=== PATIENT | male | born 1975 | race Caucasian/White ===

== ENCOUNTER 2018-03-04 15:09 | Emergency (ER) | payer MEDICAID ==
[~2018-03-04] VITALS: Ht 172.7 cm; Wt 70.0 kg
[~2018-03-04 15:09] MED LIST: CYCL5TAB PO; DICL-86 PO; METH500T3 PO
[2018-03-04 15:17] VITALS: BP 150/80; PULSE 87; RESP 16; TEMP 98.3; O2SAT 99
[2018-03-04] MEDS ORDERED: CLIN300C5 PO (15:48)
--- NOTE | 2018-03-04 15:52 | PD ---
HPI . Toothache Chief Complaint: Oral / Dental Pain or Problem Time Seen by Provider: 15:41 Travel History International Travel<30 days: No Contact w/Intl Traveler<30days: No Traveled to known affect area: No History of Present Illness HPI History is obtained from the patient, his and his son who appears to be about 6 years old. He comes in complaining with right jaw pain. He states that it started today. The states that he has been having problems for a long time. She states that he will not go to the dentist. The boy states that [place] when his father started complaining with pain causing them to leave the beach to come to the emergency department. He has associated swelling. He rates his pain at 10/10 with no modifying factors. PFSH Past Medical History Arthritis: No Asthma: Yes (2004 USE ALBUTEROL INHALER PRN) Autoimmune Disease: No Blood Disorders: No Heart Rhythm Problems: No Cancer: No Cardiovascular Problems: No High Cholesterol: No Chemotherapy: No Chest Pain: No Congestive Heart Failure: No COPD: No Cerebrovascular Accident: No Diabetes: No Endocrine: No GERD: No Glaucoma: No Genitourinary: No Headaches: No Hepatitis: No Hiatal Hernia: No Hypertension: No Immune Disorder: No Kidney Stones: No Musculoskeletal: No Neurologic: No Psychiatric: No Respiratory: No Myocardial Infarction: No Radiation Therapy: No Renal Failure: No Seizures: No Sickle Cell Disease: No Sleep Apnea: No Thyroid Disease: No Ulcer: No Past Surgical History Abdominal Surgery: No AICD: No Cardiac Surgery: No Ear Surgery: No Endocrine Surgery: No Eye Surgery: No Genitourinary Surgery: No Gynecologic Surgery: No Joint Replacement: No Oral Surgery: No Pacemaker: No Thoracic Surgery: No Social History Alcohol Use: Yes (ONCE A WEEK- [place]) Tobacco Use: Yes (1 PACK) Substance Use: Yes Allergies-Medications (Allergen,Severity, Reaction): Coded Allergies: No Known Allergies (Verified , 02/07/10) Reported Meds & Prescriptions Reported Meds & Active Scripts Active Clindamycin (Clindamycin HCl) 300 Mg Cap 300 Mg PO TID Methocarbamol 500 Mg Tab 2 Tab PO QID UNKNOWN DOSE Voltaren (Diclofenac Sodium) 75 Mg Tabec 75 Mg PO BID Reported Flexeril (Cyclobenzaprine HCl) 5 Mg Tab 0 PO UNKNOWN DOSE Review of Systems Except as stated in HPI: all other systems reviewed are Neg Physical Exam Narrative GENERAL: Awake and alert and in no acute distress. SKIN: Warm and dry. The skin of the right face is not red or hot. HEAD: Normocephalic/atraumatic. Swelling of the right jaw. EYES: Pupils are equal. Extraocular movements are intact. ENT: Extremely poor dental hygiene. It looks like all of his molars and bicuspids are rotten to the gumline. His incisors and canines also have severe caries. NECK: Normal range of motion. No cervical lymphadenopathy. CARDIOVASCULAR: Regular rate and rhythm. RESPIRATORY: Nonlabored respirations. MUSCULOSKELETAL: Atraumatic. NEUROLOGICAL: Nonfocal. PSYCHIATRIC: Appropriate mood and affect. Data Data Last Documented VS Vital Signs Date Time Temp Pulse Resp B/P (MAP) Pulse Ox O2 Delivery O2 Flow Rate FiO2 03/04/18 15:17 98.3 87 16 150/80 (103) 99 Orders Orders Clindamycin (Cleocin) (03/04/18 16:00) Ketorolac Inj (Toradol Inj) (03/04/18 16:00) Ed Discharge Order (03/04/18 15:46) MDM Medical Decision Making Medical Screen Exam Complete: Yes Emergency Medical Condition: Yes Differential Diagnosis Differential diagnosis of a toothache includes but is not limited to dental caries, dental abscess, gingivitis, drug-seeking behavior. Narrative Course Patient presents with toothache associated with facial swelling. He will be treated for a dental abscess with clindamycin. He will be instructed to follow- up with a dentist. Diagnosis Primary Impression: Dental abscess Patient Instructions: General Instructions, Dental Abscess (ED) Departure Forms: Tests/Procedures Additional Instructions: Follow-up with a dentist. Antibiotics as directed. Orajel, ibuprofen, Tylenol, Aleve as needed for pain. Scripts Clindamycin (Clindamycin) 300 Mg Cap 300 MG PO TID for Infection, #21 CAP 0 Refills Prov: Meagan Gautam MD 03/04/18 Disposition: 01 DISCHARGE HOME Condition: Stable Meagan Gautam MD Mar 04, 2018 15:52
[2018-03-04] MEDS ORDERED: KETOROLAC TROMETHAMINE 60 MG/2 ML (IM) VIAL IM ONE (16:00)
[2018-03-04] MEDS ORDERED: CLINDAMYCIN 150 MG CAP PO ONE (16:00)
== END 2018-03-04 16:39 | disposition home or self-care (01) ==
LOC: NEPD 15:09
DX: K04.7 Periapical abscess without sinus (principal); Z72.0 Tobacco use
CPT/HCPCS: 96372; 99283; J1885